=== PATIENT | male | born 1985 | race Caucasian/White ===

== ENCOUNTER 2016-09-30 15:25 | Emergency (ER) | payer OTHER ==
[2016-09-30 16:33] VITALS: BP 147/95; PULSE 83; RESP 18; TEMP 97.5
--- NOTE | 2016-09-30 16:39 | ED ---
General Adult HPI - General Chief complaint: Back Pain/Injury Stated complaint: back injury Time Seen by Provider: 09/30/16 16:35 Source: patient, RN notes reviewed Mode of arrival: ambulatory Limitations: no limitations - History of Present Illness Initial comments: This is a 30-year-old male who presents with back pain started about 2 hours ago. Patient states he was lifting a heavy object at work and it slipped out of his hands and he went to catch it when he felt the pain in the mid back. Patient states it is constant but is worse when he stands up straight. Patient denies any change in bowel or bladder function or loss of sensation to the saddle area. The patient denies any numbness or weakness or tingling or radicular pain to the lower or upper extremities. Patient states he took a Valium that he borrowed from a family member but this did not help the pain. Patient is able to ambulate.Patient denies any recent fever, chills, shortness breath, chest pain, abdominal pain, nausea/vomiting/diarrhea, hematuria, headache, or visual changes, or any other complaints. - Related Data Previous Rx's Medication Instructions Recorded Cyclobenzaprine [Flexeril] 5 mg PO HS 3 Days 09/30/16 Allergies Allergy/AdvReac Type Severity Reaction Status Date / Time No Known Allergies Allergy Verified 09/30/16 16:33 Review of Systems ROS Statement: Those systems with pertinent positive or pertinent negative responses have been documented in the HPI. ROS Other: All systems not noted in ROS Statement are negative. Past Medical History Additional Past Medical History / Comment(s): chronic back pain History of Any Multi-Drug Resistant Organisms: None Reported Past Surgical History: Appendectomy, Orthopedic Surgery Additional Past Surgical History / Comment(s): lt wrist Past Psychological History: No Psychological Hx Reported Smoking Status: Current every day smoker Past Alcohol Use History: Occasional Past Drug Use History: None Reported General Exam - General Exam Comments Initial Comments: General: The patient is awake and alert, in no distress, and does not appear acutely ill. Neck: The neck is supple, there is no tenderness or JVD. Cardiovascular: There is a regular rate and rhythm. No murmur, rub or gallop is appreciated. Respiratory: Lungs are clear to auscultation, respirations are non-labored, breath sounds are equal. No wheezes, stridor, rales, or rhonchi. Musculoskeletal: There is tenderness to palpation on the mid thoracic spine to approximately L1. There is no bruising, erythema or swelling. Patient is able to ambulate. Full range of motion, strength 5/5 and Sensation intact. Radial pulses 2+ bilaterally. Negative straight leg raise. Neurological: A&O x 3. CN II-XII intact, There are no obvious motor or sensory deficits. Coordination appears grossly intact. Speech is normal. Skin: Skin is warm and dry and no rashes or lesions are noted. Psychiatric: Normal mood and affect. Limitations: no limitations Course Vital Signs 09/30/16 16:31 Temperature 97.5 F L Pulse Rate 83 Respiratory 18 Rate Blood Pressure 147/95 O2 Sat by Pulse 99 Oximetry Medical Decision Making - Medical Decision Making This is a 30-year-old male presents with back pain after lifting a heavy object today. On physical exam There is tenderness to palpation on the mid thoracic spine to approximately L1. There is no bruising, erythema or swelling. Patient is able to ambulate. Full range of motion, strength 5/5 and Sensation intact. Radial pulses 2+ bilaterally. Negative straight leg raise. Xrays of the thoracic and lumbar spines were done and a reviewed showing:X-ray lumbar spine: No acute fracture or dislocation is seen in the lumbar spine. X-ray thoracic spine: No acute fracture or dislocation is seen in the thoracic spine. Discussed results with patient. I discussed muscle spasm in the back. I discussed avoidance of lifting heavy objects and resting until pain is improved. Patient was given a shot of Toradol in the EC today. I discussed [id number] Aleve/Motrin and Tylenol for the pain. Discussed ice and heat. discussed patient will receive a prescription for Flexeril. I discussed sedation effects. I discussed return parameters. Discussed that patient should follow up with PCP in one to 2 days or return to the [facility] for any worsening symptoms or for any further concerns. Patient was receptive to this plan and patient will be discharged home. Disposition Clinical Impression: Mechanical back pain Disposition: HOME SELF-CARE Condition: Good Instructions: Acute Low Back Pain (ED) Additional Instructions: Please rest and use [id number] Aleve/ibuprofen or Tylenol for the pain. Please take Flexeril as prescribed. Please do not drink alcohol or drive while using this medication as it can make you drowsy. Please avoid lifting any heavy objects until pain is completely improved. Family physician in the next 1 -2 days or return to the [facility] for any worsening symptoms or for any further concerns. Prescriptions: Cyclobenzaprine [Flexeril] 5 mg PO HS 3 Days Referrals: None,Stated [Primary Care Provider] - 1-2 days Daniela Lawson MD [REFERRING] - 1-2 days Natalie Cervantes III, MD [STAFF PHYSICIAN] - 1-2 days Yane Matias MD [STAFF PHYSICIAN] - 1-2 days Time of Disposition: 17:08
--- NOTE | 2016-09-30 16:57 | XR ---
EXAMINATION TYPE: XR thoracic spine complete DATE OF EXAM: 09/30/2016 4:52 PM CLINICAL HISTORY: pain TECHNIQUE: Frontal, lateral, and swimmer's view of thoracic spine are obtained. COMPARISON: None. FINDINGS: Thoracic spine show satisfactory alignment without evidence of acute fracture or dislocatio n. Vertebral body heights are preserved. Disc spaces are well preserved. Visualized ribs are unrem arkable. IMPRESSION: No acute fracture or dislocation is seen in the thoracic spine. ICD 10 NO FRACTURE, INIT IAL EVALUATION
--- NOTE | 2016-09-30 16:57 | XR ---
EXAMINATION TYPE: XR lumbar spine 2 or 3V DATE OF EXAM: 09/30/2016 4:52 PM CLINICAL HISTORY: pain TECHNIQUE: Three views of the lumbar spine are submitted. COMPARISON: None. FINDINGS: There are 5 lumbar type vertebral bodies identified. The lumbar spine shows satisfactory alignment w ithout evidence of acute fracture or dislocation. Vertebral body heights are within normal limits. Disc spaces are within normal limits. The overlying soft tissue appears unremarkable. IMPRESSION: No acute fracture or dislocation is seen in the lumbar spine. ICD 10 NO FRACTURE, INITIAL EVALUATION
[2016-09-30] MEDS ORDERED: KETOROLAC 60 MG/2 ML VIAL IM STA (17:03)
== END 2016-09-30 17:10 | disposition home or self-care (01) ==
LOC: EC 15:25
DX: M54.6 Pain in thoracic spine (principal); X50.0XXA Overexertion from strenuous movement or load, initial encounter; Y99.0 Civilian activity done for income or pay; F17.200 Nicotine dependence, unspecified, uncomplicated
CPT/HCPCS: 72072; 72100; 99283; 96372; J1885

== ENCOUNTER 2017-01-13 10:01 | Emergency (ER) | payer OTHER ==
[2017-01-13] MEDS ORDERED: HYDROmorphone 1 MG/ML 1 ML SYRINGE IVP STA (10:33)
[2017-01-13] MEDS ORDERED: RX INFO: IV CONTRAST WAS GIVEN 1 EACH MISC MISCELLANE PRN (10:33)
[2017-01-13] MEDS ORDERED: ONDANSETRON 4 MG/2 ML VIAL IVP STA (10:33)
--- NOTE | 2017-01-13 10:54 | ED ---
General Adult HPI - General Chief complaint: Chest Pain Stated complaint: RT SIDE RIB PAIN FROM FALL APX 3 FOOT Time Seen by Provider: 01/13/17 10:01 Source: patient, RN notes reviewed Mode of arrival: ambulatory Limitations: no limitations - History of Present Illness Initial comments: This is a 31-year-old male comes in complaining of right upper abdominal pain and right rib pain. Patient states he fell into a wall and on the way into the whole his right side. The edge. Patient states she's excruciating pain any movement seems to make it worse. Patient states he doesn't feel short of breath but it hurts significantly to breathe. Patient denies any nausea or vomiting. Patient denies pain in the left upper quadrant or left side of his chest at all. Patient states some of this pain in the chest area radiates to the back. Patient denies any head or neck trauma. Patient denies any headache. Patient denies any lower extremity injuries. - Related Data Previous Rx's Medication Instructions Recorded Ibuprofen [Motrin] 600 mg PO Q6HR PRN #20 tab 01/13/17 traMADol HCl [Ultram] 50 mg PO Q6H PRN #20 tab 01/13/17 Allergies Allergy/AdvReac Type Severity Reaction Status Date / Time No Known Allergies Allergy Verified 01/13/17 10:53 Review of Systems ROS Statement: Those systems with pertinent positive or pertinent negative responses have been documented in the HPI. ROS Other: All systems not noted in ROS Statement are negative. Past Medical History Additional Past Medical History / Comment(s): chronic back pain History of Any Multi-Drug Resistant Organisms: None Reported Past Surgical History: Appendectomy, Orthopedic Surgery Additional Past Surgical History / Comment(s): lt wrist Past Psychological History: No Psychological Hx Reported Smoking Status: Current every day smoker Past Alcohol Use History: Occasional Past Drug Use History: None Reported General Exam - General Exam Comments Initial Comments: GENERAL: Patient is well-developed and well-nourished. Patient is nontoxic and well- hydrated and is in moderate distress. ENT: Neck is soft and supple. No significant lymphadenopathy is noted. Oropharynx is clear. Moist mucous membranes. EYES: The sclera were anicteric and conjunctiva were pink and moist. Extraocular movements were intact and pupils were equal round and reactive to light. Eyelids were unremarkable. PULMONARY: Unlabored respirations. Good breath sounds bilaterally. No audible rales rhonchi or wheezing was noted. CARDIOVASCULAR: There is a regular rate and rhythm without any murmurs gallops or rubs. Right anterior lower ribs extremely tender to touch. No subcu air is noted. ABDOMEN: Left upper quadrant is severely tender. SKIN: Skin is clear with no lesions or rashes and otherwise unremarkable. NEUROLOGIC: Patient is alert and oriented x3. Cranial nerves II through XII are grossly intact. Motor and sensory are also intact. Normal speech, volume and content. Symmetrical smile. MUSCULOSKELETAL: Normal extremities with adequate strength and full range of motion. No lower extremity swelling or edema. No calf tenderness. LYMPHATICS: No significant lymphadenopathy is noted PSYCHIATRIC: Normal psychiatric evaluation. Limitations: no limitations Course Vital Signs 01/13/17 10:14 Temperature 99.2 F Pulse Rate 74 Respiratory 20 Rate Blood Pressure 142/94 O2 Sat by Pulse 99 Oximetry Medical Decision Making - Medical Decision Making CT of the chest abdomen pelvis were normal. - Lab Data Result diagrams: 01/13/17 10:40 01/13/17 10:40 Lab Results 01/13/17 01/13/17 Range/Units 10:40 10:40 WBC 9.9 (3.8-10.6) k/uL RBC 5.18 (4.30-5.90) m/uL Hgb 15.4 (13.0-17.5) gm/dL Hct 45.8 (39.0-53.0) % MCV 88.5 (80.0-100.0) fL MCH 29.7 (25.0-35.0) pg MCHC 33.6 (31.0-37.0) g/dL RDW 13.4 (11.5-15.5) % Plt Count 255 (150-450) k/uL Neutrophils % 79 % Lymphocytes % 13 % Monocytes % 5 % Eosinophils % 1 % Basophils % 0 % Neutrophils # 7.8 H (1.3-7.7) k/uL Lymphocytes # 1.3 (1.0-4.8) k/uL Monocytes # 0.5 (0-1.0) k/uL Eosinophils # 0.1 (0-0.7) k/uL Basophils # 0.0 (0-0.2) k/uL Sodium 141 (137-145) mmol/L Potassium 4.6 (3.5-5.1) mmol/L Chloride 105 (98-107) mmol/L Carbon Dioxide 24 (22-30) mmol/L Anion Gap 12 mmol/L BUN 14 (9-20) mg/dL Creatinine 0.86 (0.66-1.25) mg/dL Est GFR (MDRD) Af Amer >60 (>60 ml/min/1.73 sqM) Est GFR (MDRD) Non-Af >60 (>60 ml/min/1.73 sqM) Glucose 141 H (74-99) mg/dL Calcium 9.9 (8.4-10.2) mg/dL Total Bilirubin 0.7 (0.2-1.3) mg/dL AST 29 (17-59) U/L ALT 45 (21-72) U/L Alkaline Phosphatase 86 (38-126) U/L Total Protein 8.0 (6.3-8.2) g/dL Albumin 4.8 (3.5-5.0) g/dL Disposition Clinical Impression: Chest wall contusion Disposition: HOME SELF-CARE Condition: Good Instructions: Chest Wall Pain (ED) Prescriptions: Ibuprofen [Motrin] 600 mg PO Q6HR PRN #20 tab PRN Reason: For pain traMADol HCl [Ultram] 50 mg PO Q6H PRN #20 tab PRN Reason: When necessary for pain Referrals: None,Stated [Primary Care Provider] - 1-2 days Time of Disposition: 12:07
[2017-01-13 11:06] LABS: Basophils % (A) 0 %; CH 29.9; Eosinophils # (A) 0.1 k/uL (0-0.7); Eosinophils % (A) 1 %; HCT 45.8 % (39.0-53.0); HDW 2.25; HGB 15.4 gm/dL (13.0-17.5); Luc # (Auto) 0.16; Luc % (Auto) 2; Lymphocytes # (A) 1.3 k/uL (1.0-4.8); Lymphocytes % (A) 13 %; MCH 29.7 pg (25.0-35.0); MCHC 33.6 g/dL (31.0-37.0); MCV 88.5 fL (80.0-100.0); Mean Platelet Volume 7.3; Monocytes # (A) 0.5 k/uL (0-1.0); Monocytes % (A) 5 %; Neutrophils # (A) 7.8 k/uL (1.3-7.7); Neutrophils % (A) 79 %; RBC 5.18 m/uL (4.30-5.90); RDW 13.4 % (11.5-15.5); WBC 9.9 k/uL (3.8-10.6); WBC (Perox) 9.69
[2017-01-13 11:20] LABS: ALT 45 U/L (21-72); AST 29 U/L (17-59); Alkaline Phosphatase 86 U/L (38-126); Anion Gap 12 mmol/L; Blood Urea Nitrogen 14 mg/dL (9-20); Calcium 9.9 mg/dL (8.4-10.2); Carbon Dioxide 24 mmol/L (22-30); Chloride 105 mmol/L (98-107); Glucose 141 mg/dL (74-99); Non-African American GFR(MDRD) >60 (>60 ml/min/1.73 sqM); Potassium 4.6 mmol/L (3.5-5.1); Sodium 141 mmol/L (137-145); Total Bilirubin 0.7 mg/dL (0.2-1.3)
--- NOTE | 2017-01-13 11:41 | CT ---
EXAMINATION TYPE: CT ChestAbdPelvis w con DATE OF EXAM: 01/13/2017 INDICATION: Rt side rib pain from fall approximately 3 feet COMPARISON: NONE CT DLP: 582.9 mGycm CONTRAST: Performed without Oral Contrast and with IV Contrast, patient injected with 100 mL of Omnipaque 300. TECHNIQUE: Axial images at 5 mm thick sections. Reconstructed images in the coronal plane. Delayed images through the kidneys. FINDINGS: CT CHEST: Portion of the thyroid visualized is normal. No suspicious lung nodules or focal infiltrates are present. No pneumothorax is evident.0 No enlarged mediastinal or hilar adenopathy is evident. The ascending aorta diameter at the level of the main pulmonary artery is 2.4 cm. The main pulmonary artery diameter at the bifurcation is 2.[address] ABDOMEN: Liver: Normal Spleen: Normal Pancreas: Normal Adrenal glands: There is some mild prominence of the superior posterior right adrenal gland measuring 0.9 cm. Left gland appears normal. Gallbladder: Normal Kidneys: No masses are evident. No hydronephrosis is present. No cysts are present. Delayed images were obtained through the kidneys, which remain unremarkable. Aorta: Normal Inferior vena cava: Normal. CT PELVIS: Loops of bowel within the abdomen and pelvis are normal. Study is without oral contrast limiting evaluation. Appendix: Not visualized compatible with patient's surgical history. Urinary bladder: Normal. Genitourinary structures: Prostate appears unremarkable. Osseous structures: No suspicious lytic or sclerotic lesions. No acute fractures are identified. No free fluid is within the abdomen or pelvis. No lacerations solid organs is evident. IMPRESSIONS: 1. No acute posttraumatic changes. 2. Minimal prominence of the right adrenal gland.
[2017-01-13] MEDS ORDERED: KETOROLAC 60 MG/2 ML VIAL IVP STA (12:06)
[2017-01-13 12:22] VITALS: BP 153/77; PULSE 77; RESP 18; TEMP 97.2
== END 2017-01-13 12:30 | disposition home or self-care (01) ==
LOC: EC 10:01
DX: S20.211A Contusion of right front wall of thorax, initial encounter (principal); F17.200 Nicotine dependence, unspecified, uncomplicated; W13.8XXA Fall from, out of or through other building or structure, initial encounter
CPT/HCPCS: 96375 ×3; 96374 ×2; 99284 ×2; 36415; 80053; 85025; 71260; 74177; J2405; J1885; J1170; Q9967

== ENCOUNTER → 2018-01-17 | Outpatient (CLI) | payer OTHER ==
--- NOTE | 2018-01-17 16:17 | US ---
EXAMINATION TYPE: US scrotum with doppler. Grayscale and color Doppler Duplex imaging performed of t magdaleno scrotum. DATE OF EXAM: 01/17/2018 COMPARISON: NONE CLINICAL HISTORY: N50.9 Testicular Mass. Pt states palpable lumps, more on left side x few years EXAM MEASUREMENTS: TESTICLES: Right Testicle: 4.2 x 2.1 x 3.4 cm Left Testicle: 4.0 x 1.7 x 2.9 cm EPIDIDYMIS HEAD: Right Epididymis: 1.1 cm Left Epididymis: 1.4 cm Doppler performed to assess for testicular vascularity; good bilateral color flow and waveforms are s een. Presence of hydroceles: No Presence of varicoceles: No Few small calcs seen within right testicle/ in area of pt's palpables there is a solid lesion within the right scrotum= 1.1 x 0.7 x 1.1 cm and three within the left scrotum 1)= 0.8 x 0.7 x 0.9 cm 2)= 0 .7 x 0.7 cm 3)=0.7 x 0.6 cm/ these do not appear to communicate to the testicles and blood flow is n ot visualized within these. Comparison views show symmetric blood flow to both testicles IMPRESSION: Nonspecific subcentimeter extratesticular lesions bilaterally, differential includes acce ssory testicles, other etiologies are not excluded. Findings favored benign given multiplicity and ex tratesticular location.
== END | disposition home or self-care (01) ==
LOC: RADUSWWP 15:21
PROVIDERS: ATTEND Family Medicine
DX: L98.9 Disorder of the skin and subcutaneous tissue, unspecified (principal)
CPT/HCPCS: 76870; 93975